=== PATIENT | female | born 1955 | race Two or more races ===

== ENCOUNTER → 2025-02-17 | Emergency (ER) | payer OTHER ==
[~2025-02-17] VITALS: Ht 157.5 cm; Wt 90.7 kg
[~2025-02-17] MED LIST: AVALIDE 150-12.1 TA1 PO; AZITHROMYCIN 500 MG TABLET PO ONE; BENZONATATE 100 MG CAPSULE PO ONE; BENZONATATE200 M1 PO; BUCAPSOL7.5 MG; CLONAZEPAM0.5 MG; CRESTOR10 MG PO; DIOVAN40 MG; GLUCOVANCE 1.251 TAB PO; GUAIFEN/DEXTROMETHORPHAN/PE 10 ML BLIST.PACK PO ONE; IPRATROPIU0.2 MG/1 M IH; MOUNJARO2.5 MG/0.5; PAXIL30 MG PO; PEPCID AC10 MG; SYNTHROID50 MCG; ZITHROMAX500 MG PO; ZYLOPRIM100 M1
[2025-02-17 19:29] LABS: BASO % 0.7 % (0.1-1.2); EOS # 0.46 (0.04-0.54); EOS % 8.1 % (0.7-7.0); LYMPH # 2.35 (1.18-3.74); LYMPH % 41.4 % (19.3-53.1); MEAN PLATELET VOLUME 10.10 fl (9.4-12.4); MONO # 0.59 (0.24-0.82); MONO % 10.4 % (4.7-12.5); NEUT # 2.22 (1.56-6.13); NEUT % 39.2 % (34.0-71.1); RED CELL DISTRIBUTION WIDTH 14.6 % (11.6-14.4)
[2025-02-17 19:51] LABS: COVID-19 AG NEGATIVE (NEGATIVE)
== END | disposition home or self-care (01) ==
LOC: ER 14:29
PROVIDERS: General Practice
DX: J44.1 Chronic obstructive pulmonary disease with (acute) exacerbation (principal); J20.8 Acute bronchitis due to other specified organisms; Z20.822 Contact with and (suspected) exposure to COVID-19